=== PATIENT | male | born 1965 | race African-American/Black ===

== ENCOUNTER 2021-06-15 11:34 | Inpatient (IN) ==
[2021-06-15] MEDS ORDERED: GLUCAGON 1 MG VIAL IM PRN (15:36)
[2021-06-15] MEDS ORDERED: DEXTROSE 50% 25 GM/50 ML VIAL IV PRN (15:36)
[2021-06-15] MEDS ORDERED: ONDANSETRON 4 MG/2 ML VIAL IV PRN (15:36)
[2021-06-15] MEDS ORDERED: hydrALAZINE 20 MG/1 ML VIAL IV PRN (15:53)
[2021-06-15] MEDS: SODIUM CHLORIDE 0.9% 1,000 ML IV SCH (17:41)
[2021-06-15 18:41] LABS: Basophils % 0.7 % (0.0-0.8); Eosinophils # 0.1 10*3/uL (0.0-0.87); Eosinophils % 1.6 % (0.00-10.9); Hematocrit 29.7 VOL% (42.0-52.0); Hemoglobin 9.4 GM/DL (14.0-18.0); Immature Granulocytes % 0.4 %; Immature Granulocytes Absolute 0.02 #; Lymphocytes # 0.9 10*3/uL (1.4-4.0); Lymphocytes % 16.2 % (21.2-54.2); Mean Corpuscular HGB Conc 31.6 GM/DL (32-36); Mean Corpuscular Volume 96.7 FL (87-102); Mean Platelet Volume 10.3 FL (9.6-12.0); Monocytes % 10.3 % (1.7-12.7); Neutrophils % 70.8 % (38.7-73.9); Platelet Count 220 T/CUMM (130-400); Red Blood Count 3.07 MC/CUMM (3.8-5.5); Red Cell Distribution Width 16.8 % (9.3-17.3); White Blood Count 5.6 T/CUMM (4-12)
[2021-06-15 19:02] LABS: Albumin 2.7 G/DL (3.4-5.0); Bilirubin,Total 0.5 MG/DL (0.20-1.00); Calcium 8.7 MG/DL (8.5-10.1); Osmolality,Calculated 288.3 MOS/KG (273-304); Potassium 4.2 MMOL/L (3.5-5.1); Total Protein 7.3 G/DL (6.4-8.2)
[2021-06-16] MEDS: SODIUM CHLORIDE 0.9% 1,000 ML IV SCH ×4 (03:48→19:08)
[2021-06-16 05:22] LABS: Basophils % 0.8 % (0.0-0.8); Eosinophils # 0.1 10*3/uL (0.0-0.87); Eosinophils % 1.9 % (0.00-10.9); Hemoglobin 9.5 GM/DL (14.0-18.0); Immature Granulocytes % 0.4 %; Immature Granulocytes Absolute 0.02 #; Lymphocytes # 0.8 10*3/uL (1.4-4.0); Lymphocytes % 14.6 % (21.2-54.2); Mean Corpuscular HGB Conc 31.7 GM/DL (32-36); Mean Platelet Volume 10.9 FL (9.6-12.0); Monocytes % 10.8 % (1.7-12.7); Neutrophils % 71.5 % (38.7-73.9); Platelet Count 225 T/CUMM (130-400); Red Blood Count 3.06 MC/CUMM (3.8-5.5); Red Cell Distribution Width 16.7 % (9.3-17.3); White Blood Count 5.2 T/CUMM (4-12)
[2021-06-16 05:49] LABS: Calcium 9.1 MG/DL (8.5-10.1); Osmolality,Calculated 292.8 MOS/KG (273-304); Potassium 4.1 MMOL/L (3.5-5.1)
[2021-06-16 08:22] LABS: Risk Ratio 1.68; VLDL Cholesterol 14.4 MG/DL
[2021-06-16] MEDS ORDERED: HYDROmorphone 2 MG/1 ML VIAL IV PRN (10:01)
[2021-06-16] MEDS: SACUBITRIL/VALSARTAN 49-51 MG TABLET PO SCH (21:25)
[2021-06-16] MEDS: carvediloL 25 MG TABLET PO SCH (21:25)
[2021-06-17] MEDS: SODIUM CHLORIDE 0.9% 1,000 ML IV SCH ×2 (02:21→10:51)
[2021-06-17 06:48] LABS: Eosinophils # 0.1 10*3/uL (0.0-0.87); Eosinophils % 1.9 % (0.00-10.9); Hematocrit 29.4 VOL% (42.0-52.0); Hemoglobin 9.4 GM/DL (14.0-18.0); Immature Granulocytes % 0.2 %; Immature Granulocytes Absolute 0.01 #; Lymphocytes # 0.7 10*3/uL (1.4-4.0); Lymphocytes % 16.5 % (21.2-54.2); Mean Corpuscular Volume 97.7 FL (87-102); Mean Platelet Volume 11.1 FL (9.6-12.0); Monocytes % 11.2 % (1.7-12.7); Neutrophils % 69.2 % (38.7-73.9); Platelet Count 231 T/CUMM (130-400); Red Blood Count 3.01 MC/CUMM (3.8-5.5); Red Cell Distribution Width 16.5 % (9.3-17.3); White Blood Count 4.2 T/CUMM (4-12)
[2021-06-17 07:17] LABS: Osmolality,Calculated 292.6 MOS/KG (273-304); Potassium 3.9 MMOL/L (3.5-5.1)
[2021-06-17] MEDS: SACUBITRIL/VALSARTAN 49-51 MG TABLET PO SCH ×3 (08:58→20:31)
[2021-06-17] MEDS: carvediloL 25 MG TABLET PO SCH ×3 (08:58→20:31)
[2021-06-17] MEDS: amLODIPine 5 MG TABLET PO SCH ×2 (08:58→09:05)
[2021-06-17] MEDS ORDERED: FUROSEMIDE 40 MG TABLET PO SCH (09:00)
[2021-06-17] MEDS: DEXTROSE 5% 1,000 ML IV SCH (11:12)
[2021-06-18] MEDS: DEXTROSE 5% 1,000 ML IV SCH ×2 (02:39→16:52)
[2021-06-18 06:54] LABS: Basophils % 1.1 % (0.0-0.8); Eosinophils # 0.1 10*3/uL (0.0-0.87); Eosinophils % 1.6 % (0.00-10.9); Hematocrit 35.3 VOL% (42.0-52.0); Immature Granulocytes % 0.3 %; Immature Granulocytes Absolute 0.01 #; Lymphocytes # 0.7 10*3/uL (1.4-4.0); Mean Corpuscular HGB Conc 33.7 GM/DL (32-36); Mean Corpuscular Volume 93.6 FL (87-102); Mean Platelet Volume 10.4 FL (9.6-12.0); Monocytes % 12.9 % (1.7-12.7); Neutrophils % 65.1 % (38.7-73.9); Platelet Count 260 T/CUMM (130-400); White Blood Count 3.6 T/CUMM (4-12)
[2021-06-18 06:56] LABS: Hemoglobin 11.9 GM/DL (14.0-18.0); Red Blood Count 3.77 MC/CUMM (3.8-5.5)
[2021-06-18 07:13] LABS: Calcium 9.7 MG/DL (8.5-10.1); Osmolality,Calculated 292.8 MOS/KG (273-304); Potassium 3.4 MMOL/L (3.5-5.1)
[2021-06-18] MEDS ORDERED: POTASSIUM CHLORIDE 20 MEQ TABLET PO ONE (08:14)
[2021-06-18] MEDS: PANTOPRAZOLE 40 MG VIAL IV SCH (11:02)
[2021-06-18] MEDS: amLODIPine 5 MG TABLET PO SCH (11:06)
[2021-06-18] MEDS: carvediloL 25 MG TABLET PO SCH ×2 (11:07→22:01)
[2021-06-18] MEDS: SACUBITRIL/VALSARTAN 49-51 MG TABLET PO SCH ×2 (11:07→22:01)
[2021-06-19 05:13] LABS: Basophils % 0.7 % (0.0-0.8); Eosinophils # 0.1 10*3/uL (0.0-0.87); Eosinophils % 1.1 % (0.00-10.9); Hematocrit 33.9 VOL% (42.0-52.0); Hemoglobin 11.6 GM/DL (14.0-18.0); Immature Granulocytes % 0.2 %; Immature Granulocytes Absolute 0.01 #; Lymphocytes # 0.8 10*3/uL (1.4-4.0); Lymphocytes % 14.6 % (21.2-54.2); Mean Corpuscular HGB Conc 34.2 GM/DL (32-36); Mean Corpuscular Volume 93.4 FL (87-102); Mean Platelet Volume 10.3 FL (9.6-12.0); Monocytes % 13.8 % (1.7-12.7); Neutrophils % 69.6 % (38.7-73.9); Platelet Count 238 T/CUMM (130-400); Red Blood Count 3.63 MC/CUMM (3.8-5.5); Red Cell Distribution Width 15.7 % (9.3-17.3); White Blood Count 5.4 T/CUMM (4-12)
[2021-06-19] MEDS: DEXTROSE 5% 1,000 ML IV SCH (05:16)
[2021-06-19 05:51] LABS: Albumin 2.8 G/DL (3.4-5.0); Bilirubin,Total 1.9 MG/DL (0.20-1.00); Calcium 9.1 MG/DL (8.5-10.1); Osmolality,Calculated 284.5 MOS/KG (273-304); Potassium 3.5 MMOL/L (3.5-5.1); Total Protein 7.7 G/DL (6.4-8.2)
[2021-06-19] MEDS ORDERED: LACTATED RINGERS 1,000 ML IV ONE (09:20)
[2021-06-19] MEDS: PANTOPRAZOLE 40 MG VIAL IV SCH (09:22)
[2021-06-19] MEDS: carvediloL 25 MG TABLET PO SCH (09:22)
[2021-06-19] MEDS: SACUBITRIL/VALSARTAN 49-51 MG TABLET PO SCH (09:23)
[2021-06-19] MEDS: amLODIPine 5 MG TABLET PO SCH (09:23)
[2021-06-19] MEDS: LACTATED RINGERS 1,000 ML IV SCH ×2 (11:58→18:37)
[2021-06-19] MEDS: HEPARIN 5,000 UNIT/1 ML VIAL SUBCUT SCH ×2 (13:30→20:24)
[2021-06-20] MEDS: LACTATED RINGERS 1,000 ML IV SCH ×4 (01:00→23:30)
[2021-06-20] MEDS: HEPARIN 5,000 UNIT/1 ML VIAL SUBCUT SCH ×3 (03:24→19:10)
[2021-06-20 05:07] LABS: Basophils % 0.4 % (0.0-0.8); Eosinophils # 0.1 10*3/uL (0.0-0.87); Eosinophils % 2.3 % (0.00-10.9); Hematocrit 30.5 VOL% (42.0-52.0); Immature Granulocytes % 0.2 %; Immature Granulocytes Absolute 0.01 #; Lymphocytes # 1.2 10*3/uL (1.4-4.0); Lymphocytes % 23.8 % (21.2-54.2); Mean Corpuscular HGB Conc 32.8 GM/DL (32-36); Mean Corpuscular Volume 95.3 FL (87-102); Mean Platelet Volume 11.1 FL (9.6-12.0); Monocytes % 17.7 % (1.7-12.7); Neutrophils % 55.6 % (38.7-73.9); Platelet Count 217 T/CUMM (130-400); Red Cell Distribution Width 15.4 % (9.3-17.3); White Blood Count 5.1 T/CUMM (4-12)
[2021-06-20 05:33] LABS: Calcium 8.7 MG/DL (8.5-10.1); Osmolality,Calculated 281.5 MOS/KG (273-304); Potassium 3.7 MMOL/L (3.5-5.1)
[2021-06-20 06:03] LABS: Anisocytosis 1+; Eosinophils 4 % (0-10); Lymphocytes 23 % (20-55); Macrocytosis Slight; Platelet Estimate Normal; Segmented Neutrophils 55 % (50-85); Total Cells Counted 100
[2021-06-20] MEDS ORDERED: MAGNESIUM SULF RIDER 2 GM/50 ML PREMIX IV ONE (07:30)
[2021-06-20] MEDS: PANTOPRAZOLE 40 MG VIAL IV SCH (08:17)
[2021-06-20] MEDS ORDERED: MAGNESIUM SULF RIDER 4 GM/100 ML PREMIX IV PRN (09:59)
[2021-06-20] MEDS ORDERED: MAGNESIUM SULF RIDER 2 GM/50 ML PREMIX IV PRN (09:59)
[2021-06-20] MEDS ORDERED: LACTATED RINGERS 500 ML IV ONE (16:04)
[2021-06-21] MEDS: HEPARIN 5,000 UNIT/1 ML VIAL SUBCUT SCH ×3 (04:50→20:48)
[2021-06-21] MEDS: LACTATED RINGERS 1,000 ML IV SCH ×3 (05:10→15:58)
[2021-06-21 05:56] LABS: Basophils % 0.4 % (0.0-0.8); Eosinophils # 0.1 10*3/uL (0.0-0.87); Eosinophils % 1.8 % (0.00-10.9); Hematocrit 29.3 VOL% (42.0-52.0); Hemoglobin 9.4 GM/DL (14.0-18.0); Immature Granulocytes % 0.4 %; Immature Granulocytes Absolute 0.02 #; Lymphocytes # 0.8 10*3/uL (1.4-4.0); Lymphocytes % 16.3 % (21.2-54.2); Mean Corpuscular HGB Conc 32.1 GM/DL (32-36); Mean Corpuscular Volume 95.1 FL (87-102); Mean Platelet Volume 11.2 FL (9.6-12.0); Monocytes % 17.5 % (1.7-12.7); Neutrophils % 63.6 % (38.7-73.9); Platelet Count 220 T/CUMM (130-400); Red Blood Count 3.08 MC/CUMM (3.8-5.5); Red Cell Distribution Width 15.3 % (9.3-17.3); White Blood Count 5.1 T/CUMM (4-12)
[2021-06-21 06:21] LABS: Eosinophils 1 % (0-10); Lymphocytes 13 % (20-55); Platelet Estimate Normal; Segmented Neutrophils 68 % (50-85); Total Cells Counted 100
[2021-06-21 06:22] LABS: Anisocytosis 1+; Macrocytosis Slight
[2021-06-21 06:24] LABS: Calcium 8.6 MG/DL (8.5-10.1); Osmolality,Calculated 281.4 MOS/KG (273-304); Potassium 3.4 MMOL/L (3.5-5.1)
[2021-06-21] MEDS ORDERED: POTASSIUM CHLORIDE 20 MEQ TABLET PO ONE (07:23)
[2021-06-21] MEDS: PANTOPRAZOLE 40 MG VIAL IV SCH (09:20)
[2021-06-21] MEDS: metroNIDAZOLE 500 MG TABLET PO SCH ×2 (12:13→16:23)
[2021-06-21] MEDS: CIPROFLOXACIN 500 MG TABLET PO SCH ×2 (12:13→20:48)
[2021-06-22] MEDS: LACTATED RINGERS 1,000 ML IV SCH ×2 (01:45→12:21)
[2021-06-22] MEDS: HEPARIN 5,000 UNIT/1 ML VIAL SUBCUT SCH (04:53)
[2021-06-22 05:51] LABS: Basophils % 0.4 % (0.0-0.8); Eosinophils # 0.1 10*3/uL (0.0-0.87); Eosinophils % 2.4 % (0.00-10.9); Hematocrit 32.2 VOL% (42.0-52.0); Hemoglobin 10.5 GM/DL (14.0-18.0); Immature Granulocytes % 0.2 %; Immature Granulocytes Absolute 0.01 #; Lymphocytes # 0.9 10*3/uL (1.4-4.0); Lymphocytes % 17.1 % (21.2-54.2); Mean Corpuscular HGB Conc 32.6 GM/DL (32-36); Mean Platelet Volume 11.2 FL (9.6-12.0); Monocytes % 16.7 % (1.7-12.7); Neutrophils % 63.2 % (38.7-73.9); Platelet Count 226 T/CUMM (130-400); Red Blood Count 3.39 MC/CUMM (3.8-5.5); Red Cell Distribution Width 15.2 % (9.3-17.3); White Blood Count 5.1 T/CUMM (4-12)
[2021-06-22 06:10] LABS: Osmolality,Calculated 277.5 MOS/KG (273-304)
[2021-06-22 06:19] LABS: Eosinophils 1 % (0-10); Hypochromasia 1+; Lymphocytes 16 % (20-55); Segmented Neutrophils 69 % (50-85); Total Cells Counted 100
[2021-06-22 06:20] LABS: Microcytosis 1+; Platelet Estimate Normal
[2021-06-22 08:22] VITALS: BP 119/66
[2021-06-22] MEDS: metroNIDAZOLE 500 MG TABLET PO SCH (09:29)
[2021-06-22] MEDS: CIPROFLOXACIN 500 MG TABLET PO SCH (09:29)
[2021-06-22] MEDS: PANTOPRAZOLE 40 MG VIAL IV SCH (09:29)
[2021-06-23 17:51] LABS: CDT Result Negative (Negative); CDT Specimen Source STOOL
== END 2021-06-22 12:15 | disposition home or self-care (01) | DRG 389 ==
LOC: N.ED 11:34 → SUATTDRO 15:36 → N.EDINP 15:36 → N.3E 17:40
PROVIDERS: ADMIT Internal Medicine; ATTEND Internal Medicine